=== PATIENT | male | born 2000 | race Two or more races ===

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

== ENCOUNTER 2020-11-08 16:15 | Emergency (ER) | payer BC, OTHER ==
[~2020-11-08] VITALS: Ht 177.8 cm; Wt 106.0 kg
[~2020-11-08 16:15] MED LIST changes: -BUPIVACAINE/PF-EPI 0.5% 1:200K ONE; -EPINEPHRINE 1 MG/ML, 1ML ONE; -LIDOCAINE/PF 0.5% ,50ML ONE
[2020-11-08] MEDS ORDERED: LORazepam 2 MG/ML, 1ML ONE (16:44)
[2020-11-08] MEDS ORDERED: LORazepam 2 MG/ML, 1ML IVPush ONE (17:00)
[2020-11-08] MEDS ORDERED: SODIUM CHLORIDE FLUSH 10ML SYR IVF ONE (17:00)
[2020-11-08 17:11] LABS: BASOPHILS % (AUTO) 0 % (0-1); EOSINOPHILS % (AUTO) 0 % (1-7); LYMPHOCYTES % (AUTO) 19 % (22-44); MEAN CORPUSCULAR HEMOGLOBIN 28.3 pg (27.5-34.5); MEAN CORPUSCULAR HGB CONC 35.1 g/dL (33.2-36.2); MONOCYTES % (AUTO) 5 % (2-9); NEUTROPHILS % (AUTO) 76 % (42-75); PLATELET COUNT 323 x10^3/uL (130-400); RED BLOOD COUNT 6.03 x10^6/uL (4.38-5.82); RED CELL DISTRIBUTION WIDTH 13.7 % (9.4-14.8)
[2020-11-08 17:13] LABS: MD NO
[2020-11-08 17:23] LABS: ALBUMIN 4.6 g/dL (3.4-5.0); ANION GAP 9 mmol/L (5-15); CALCIUM 9.6 mg/dL (8.5-10.1); CHLORIDE 105 mmol/L (98-107); CREATININE 1.12 mg/dL (0.7-1.3)
--- NOTE | 2020-11-08 18:00 | NUR ---
PT TO BR INDEPENDENTLY. NO UA ORDERED.
[2020-11-08 18:48] VITALS: BP 159/86
--- NOTE | 2020-11-08 18:48 | NUR ---
PT DC'D WITH A STEADY GAIT.
== END 2020-11-08 18:50 | disposition home or self-care (01) ==
LOC: ED 16:46
DX: I10 Essential (primary) hypertension (principal); F14.10 Cocaine abuse, uncomplicated; R42 Dizziness and giddiness; R00.0 Tachycardia, unspecified; H53.8 Other visual disturbances
CPT/HCPCS: 36415; 80048; 82040; 85025; 93005; 96374; 99284; J2060